=== PATIENT | male | born 1965 | race Caucasian/White ===

== ENCOUNTER 2017-08-31 15:42 | Outpatient (CLI) | payer OTHER | END 2017-08-31 15:43 | disposition home or self-care (01) | LOC: BICULT 15:42 | PROVIDERS: ATTEND Nurse Practitioner Family | DX: E03.9 Hypothyroidism, unspecified (principal) | CPT/HCPCS: 76536 ==

== ENCOUNTER 2022-04-01 13:45 | Outpatient (CLI) | payer OTHER | END 2022-04-01 13:46 | disposition home or self-care (01) | LOC: RAD-FRANK 13:45 | PROVIDERS: ATTEND Nurse Practitioner Family | DX: M79.5 Residual foreign body in soft tissue (principal) | CPT/HCPCS: 71046 ==